=== PATIENT | male | born 1975 | race Caucasian/White ===

== ENCOUNTER 2017-04-07 13:23 | Emergency (ER) | payer BC ==
[~2017-04-07 13:23] MED LIST: ALBUTEROL17 GM INH; AMOXICILLIN500 M1 PO; AMOXICILLIN875 MG PO; ASACOL PO; AUGMENTIN1 TAB.SR2 PO; AZITHROMYCIN250 MG PO; BACLOFEN10 MG PO; BENTYL10 M1 PO; CIPRO PO; CIPRO250 M1 PO; CORTISPORI3.5 GM OPT AS; DEPO-TESTADIOL10 ML INJ; DICLOFENAC; DICLOFENAC PO; FIORICET 50-321 EACH PO; FLAGYL PO; FLEXERIL PO; FLEXERIL10 M1 PO; FLEXERIL10 MG PO; FLONASE16 GM; FLOXIN10 ML AS; IBUPROFEN; IBUPROFEN600 MG PO; IBUPROFEN800 MG PO; LISINOPRIL; LOMOTIL WHITE2.5 M1 PO; LORTAB 101 TAB 10/5 PO; LORTAB 5/500 TA1 TA1 PO; LORTAB 7.5-3251 EACH PO; LORTAB 7.5-5001 TAB; MEDROL DOSEPAK4 MG DOB; MEDROL4 MG/DOSE- PO; METRONIDAZOLE PO; MOBIC PO; MOTRIN600 M1 PO; MOTRIN600 M2 PO; NAPROSYN250 M1 PO; NAPROSYN500 MG PO; NAPROXEN PO; NEXIUM; NO MEDICATIONS; ORAPRED ODT15 MG/TAB PO; PHENERGAN12.5 MG PO; PHENERGAN25 M1 PO; PHENERGAN25 MG PO; PREDNISONE; PREDNISONE PO; PREDNISONE10 MG/DOSE PO; PRILOSEC20 MG PO; PROTONIX PO; PROZAC; PURINETHOL50 M1; PURINETHOL50 M1 PO; PYRIDIUM PO; SKELAXIN PO; SUDAFED PO; TUSSIONEX PENN473 ML PO; VICODIN 5/1 TAB 5/50 PO; VICODIN 5/500 T1 TAB PO; VOLTAREN DR PO; VOLTAREN75 MG PO; ZANAFLEX PO; ZOFRAN ODT4 MG/UDTAB PO
== END 2017-04-07 15:08 | disposition home or self-care (01) ==
LOC: SED 13:23
DX: T15.02XA Foreign body in cornea, left eye, initial encounter (principal); F17.220 Nicotine dependence, chewing tobacco, uncomplicated; Z79.899 Other long term (current) drug therapy; X58.XXXA Exposure to other specified factors, initial encounter
CPT/HCPCS: 99283